=== PATIENT | male | born 1960 | race African-American/Black ===

== ENCOUNTER 2018-06-09 06:55 | Emergency (ER) | payer SELFPAY ==
[~2018-06-09] VITALS: Ht 175.3 cm; Wt 103.0 kg
[2018-06-09 06:58] VITALS: BP 136/93
== END 2018-06-09 08:55 | disposition left against medical advice (07) ==
LOC: ER 06:55
DX: Z53.21 Procedure and treatment not carried out due to patient leaving prior to being seen by health care provider (principal)